=== PATIENT | male | born 1970 | race Caucasian/White ===

== ENCOUNTER 2019-11-14 10:42 | Emergency (ER) | payer BC ==
[2019-11-14] MEDS: Ketorolac 60 MG/2 ML SDV IM ONE (11:06)
[2019-11-14] MEDS: Ketorolac 60 MG/2 ML SDV ONE (11:08)
--- NOTE | 2019-11-14 11:15 | EDM.PDOC ---
ED HPI GENERAL MEDICAL PROBLEM - General Chief Complaint: General Stated Complaint: BACK PAIN Time Seen by Provider: 11/14/19 11:15 - History of Present Illness INITIAL COMMENTS - FREE TEXT/NARRATIVE: Luis presents to the ER today due to back pain. He finished his shift at [employer] and got home and messed around a little bit going to bed at 2:30 in the morning. At 6:30 in the morning, he awoke with a weird discomfort initially in his upper back. He described this as very significant in terms of quality. He notes that it started up between his shoulder blades and kind of traveled downwards and seemed to be more on the right side. In response to his symptoms , he took a hot shower, and jumped back in bed. He had difficulty finding a comfortable position. He took another hot shower as he thought he was having more muscle spasms in his back. He went on to develop some weird nausea and epigastric pain. He denies any fever or recent dyspepsia. He has had no bowel movement changes. He is not 1 to get nauseous. He did feel a little diaphoretic with his forehead at times this morning, but this is not totally atypical for him. He has had no breathing issues, although when he takes a deep inhalation, with his fingers hooked under his ribs, he thinks that might elicit the pain slightly. He has had no recent GERD. He denies any melena or hematochezia. Lower Back Pain Score (Numeric/FACES): 9 - Related Data Allergies Allergy/AdvReac Type Severity Reaction Status Date / Time No Known Allergies Allergy Verified 11/14/19 13:21 ED ROS GENERAL - Review of Systems Review Of Systems: Comprehensive ROS is negative, except as noted in HPI. ED EXAM, GENERAL - Physical Exam Exam: See Below () Exam Limited By: No Limitations General Appearance: Alert, WD/WN, No Apparent Distress Ears: Normal External Exam, Hearing Grossly Normal Nose: Normal Inspection, Normal Mucosa Throat/Mouth: Normal Inspection, Normal Lips Head: Atraumatic, Normocephalic Neck: Normal Inspection, Supple Respiratory/Chest: No Respiratory Distress, Lungs Clear, Normal Breath Sounds Cardiovascular: Regular Rate, Rhythm, No Murmur GI/Abdominal: Normal Bowel Sounds, Soft, Non-Tender Back Exam: Normal Inspection, Full Range of Motion, Muscle Spasm. No: Vertebral Tenderness Extremities: Normal Inspection, Normal Range of Motion, Non-Tender Neurological: Alert, Oriented, CN II-XII Intact, Normal Cognition, Normal Gait, Normal Reflexes, No Motor/Sensory Deficits, Other (Strength is 5 out of 5 throughout including extensor hallucis longus and coordination is excellent) Psychiatric: Normal Affect, Normal Mood Skin Exam: Warm, Dry, Intact Course - Vital Signs Text/Narrative:: Explained to Mariah that it actually seems like he may be having some referred pain from his gallbladder. He is familiar with this. He states that he definitely had some muscle spasm. He was provided with a dose of ketorolac, which led to excellent relief. He certainly is interested in continuing this at home, because he worries once his comes and picks him up that his symptoms may return. He has had no fevers, and may have had some slight nausea. He can reproduce his pain with hooking his fingers underneath his rib cage bilaterally. On bedside ultrasound, his gallbladder appears fine to me without any obvious shadowing consistent with stones, although he may have some sludge present. There does not appear to be any wall thickness or a positive Saucedo sign by any means. Discussed treatment options, and even the potential for a HIDA scan depending on how his symptoms goodrich out. Encouraged him to avoid fatty and/or greasy foods over the next few days while he recovers. He will let us know if he is interested in surgery consultation which could be set up at the clinic. Last Recorded V/S: Last Vital Signs Temp 96.1 F L 11/14/19 10:59 Pulse 50 L 11/14/19 10:59 Resp 16 11/14/19 10:59 BP 154/91 H 11/14/19 10:59 Pulse Ox 100 11/14/19 10:59 - Orders/Labs/Meds Orders: Active Orders 24 hr Category Date Time Status EKG Documentation Completion [RC] ASDIRECTED Care 11/14/19 11:12 Active Labs: Laboratory Tests 11/14/19 11/14/19 11/14/19 Range/Units 11:15 11:15 11:15 WBC Cancelled Corrected WBC Cancelled RBC Cancelled Hgb Cancelled Hct Cancelled MCV Cancelled MCH Cancelled MCHC Cancelled RDW Cancelled Plt Count Cancelled MPV Cancelled Neut % (Auto) Cancelled Lymph % (Auto) Cancelled Vance % (Auto) Cancelled Eos % (Auto) Cancelled Baso % (Auto) Cancelled Neut # (Auto) Cancelled Lymph # (Auto) Cancelled Vance # (Auto) Cancelled Eos # (Auto) Cancelled Baso # (Auto) Cancelled Add Manual Diff Cancelled D-Dimer, Quantitative Sodium Cancelled Potassium Cancelled Chloride Cancelled Carbon Dioxide Cancelled Anion Gap Cancelled BUN Cancelled Creatinine Cancelled Est Cr Clr Drug Dosing Cancelled Estimated GFR (MDRD) Cancelled BUN/Creatinine Ratio Cancelled Glucose Cancelled Calcium Cancelled Total Bilirubin Cancelled AST Cancelled ALT Cancelled Alkaline Phosphatase Cancelled Troponin I Cancelled C-Reactive Protein Total Protein Cancelled Albumin Cancelled Globulin Cancelled Albumin/Globulin Ratio Cancelled Amylase Cancelled Lipase Urine Color Urine Appearance (CLEAR) Urine pH (5.0-8.0) Ur Specific Sumas (1.003-1.030) Urine Protein (NEGATIVE) mg/dL Urine Glucose (UA) (NEGATIVE) mg/dL Urine Ketones (NEGATIVE) mg/dL Urine Occult Blood (NEGATIVE) Urine Nitrite (NEGATIVE) Urine Bilirubin (NEGATIVE) Urine Urobilinogen (0.2-1.0) E.U./dL Ur Leukocyte Esterase (NEGATIVE) 11/14/19 11/14/19 11/14/19 Range/Units 11:15 11:15 12:20 WBC Corrected WBC RBC Hgb Hct MCV MCH MCHC RDW Plt Count MPV Neut % (Auto) Lymph % (Auto) Vance % (Auto) Eos % (Auto) Baso % (Auto) Neut # (Auto) Lymph # (Auto) Vance # (Auto) Eos # (Auto) Baso # (Auto) Add Manual Diff D-Dimer, Quantitative Cancelled Sodium Potassium Chloride Carbon Dioxide Anion Gap BUN Creatinine Est Cr Clr Drug Dosing Estimated GFR (MDRD) BUN/Creatinine Ratio Glucose Calcium Total Bilirubin AST ALT Alkaline Phosphatase Troponin I C-Reactive Protein Cancelled Total Protein Albumin Globulin Albumin/Globulin Ratio Amylase Lipase Cancelled Urine Color Yellow Urine Appearance Slightly cloudy (CLEAR) Urine pH 8.5 H (5.0-8.0) Ur Specific Sum[place] 1.025 (1.003-1.030) Urine Protein Negative (NEGATIVE) mg/dL Urine Glucose (UA) Negative (NEGATIVE) mg/dL Urine Ketones Negative (NEGATIVE) mg/dL Urine Occult Blood Negative (NEGATIVE) Urine Nitrite Negative (NEGATIVE) Urine Bilirubin Negative (NEGATIVE) Urine Urobilinogen 0.2 (0.2-1.0) E.U./dL Ur Leukocyte Esterase Negative (NEGATIVE) 11/14/19 11/14/19 11/14/19 Range/Units 12:45 12:45 12:45 WBC 8.2 Corrected WBC RBC 4.78 Hgb 14.6 Hct 40.9 MCV 86 MCH 30.5 MCHC 35.7 H RDW 13.1 Plt Count 253 MPV 8.6 Neut % (Auto) 79.7 H Lymph % (Auto) 14.2 L Vance % (Auto) 4.9 Eos % (Auto) 1.0 Baso % (Auto) 0.2 Neut # (Auto) 6.53 Lymph # (Auto) 1.16 L Vance # (Auto) 0.40 Eos # (Auto) 0.08 Baso # (Auto) 0.02 Add Manual Diff D-Dimer, Quantitative < 100 Sodium 140 Potassium 3.7 Chloride 102 Carbon Dioxide 28.8 Anion Gap 12.9 BUN 15 Creatinine 1.02 Est Cr Clr Drug Dosing 3.23 Estimated GFR (MDRD) > 60 BUN/Creatinine Ratio 14.7 Glucose 119 H Calcium 9.1 Total Bilirubin 0.5 AST 29 ALT 48 Alkaline Phosphatase 104 Troponin I < 0.017 C-Reactive Protein 6.1 H Total Protein 7.9 Albumin 4.2 Globulin 3.7 Albumin/Globulin Ratio 1.1 Amylase 46 Lipase 146 Urine Color Urine Appearance (CLEAR) Urine pH (5.0-8.0) Ur Specific Sumas (1.003-1.030) Urine Protein (NEGATIVE) mg/dL Urine Glucose (UA) (NEGATIVE) mg/dL Urine Ketones (NEGATIVE) mg/dL Urine Occult Blood (NEGATIVE) Urine Nitrite (NEGATIVE) Urine Bilirubin (NEGATIVE) Urine Urobilinogen (0.2-1.0) E.U./dL Ur Leukocyte Esterase (NEGATIVE) Meds: Medications Discontinued Medications Generic Name Dose Route Start Last Admin Trade Name Freq PRN Reason Stop Dose Admin Cyclobenzaprine HCl 10 mg 11/14/19 12:38 11/14/19 12:39 Flexeril PO 10 mg DAILY PRN Administration Muscle spasms Cyclobenzaprine HCl Confirm 11/14/19 12:35 11/14/19 13:23 Flexeril Administered 11/14/19 12:36 Not Given Dose 10 mg .ROUTE .STK-MED ONE Ketorolac Tromethamine Confirm 11/14/19 11:01 11/14/19 11:08 Toradol Administered 11/14/19 11:02 Not Given Dose 60 mg .ROUTE .STK-MED ONE Ketorolac Tromethamine 60 mg 11/14/19 10:58 11/14/19 11:06 Toradol IM 11/14/19 10:59 60 mg ONETIME ONE Administration Departure - Departure Time of Disposition: 13:36 Disposition: Home, Self-Care 01 Clinical Impression: Biliary colic - Discharge Information Instructions: Cyclobenzaprine tablets, Ketorolac tablets Referrals: PCP,None [Primary Care Provider] - Forms: ED Department Discharge Additional Instructions: Discharge home. Ultrasound tomorrow, 11/15/19 at 9:30. Do not eat or drink anything 6 hours before procedure. Flexeril 10mg 1 tablet by mouth 3 times a day as needed for muscle spasms. Toradol 10mg 1 tablet by mouth 3 times a day for 4 days. Follow up in the clinic as needed. Sepsis Event Note - Evaluation Sepsis Screening Result: No Definite Risk - Focused Exam Vital Signs: Vital Signs Temp Pulse Resp BP Pulse Ox 11/14/19 10:59 96.1 F L 50 L 16 154/91 H 100 11/14/19 10:47 96.1 F L 50 L 16 154/91 H 100 Date Exam was Performed: 11/14/19 Time Exam was Performed: 15:04 - My Orders Last 24 Hours: My Active Orders 11/14/19 11:12 EKG Documentation Completion [RC] ASDIRECTED - Assessment/Plan Last 24 Hours: My Active Orders 11/14/19 11:12 EKG Documentation Completion [RC] ASDIRECTED
--- NOTE | 2019-11-14 12:11 | CR ---
DATE OF SERVICE: 11/14/19 CLINICAL DATA: epigastric pain PA AND LATERAL CHEST: The heart size is normal. The lungs are clear. No pneumothorax. No pleural effusions. There is degenerative disc disease throughout the thoracic spine. No evidence of acute intrathoracic disease. [id number] MTDD
[2019-11-14] MEDS: Cyclobenzaprine 10 MG Tab PO PRN (12:39)
[2019-11-14] MEDS: Cyclobenzaprine 10 MG Tab ONE (13:23)
== END 2019-11-14 13:40 | disposition home or self-care (01) ==
LOC: LB.ED 10:42
DX: K80.50 Calculus of bile duct without cholangitis or cholecystitis without obstruction (principal)
CPT/HCPCS: 36415; 71046; 80053; 81003; 82150; 83690; 84484; 85025; 85379; 86140; 93005; 96372; 99283; 99284-25; A9270-GY; J1885

== ENCOUNTER 2020-08-27 00:41 | Observation (INO) | payer BC ==
[2020-08-27] MEDS ORDERED: Ketorolac 30 MG/ML SDV ONE (01:12)
[2020-08-27] MEDS ORDERED: HYDROmorphone 2 MG/ML SDV IVPUSH ONE (01:13)
[2020-08-27] MEDS ORDERED: Ketorolac 30 MG/ML SDV IVPUSH ONE (01:13)
[2020-08-27] MEDS ORDERED: HYDROmorphone 2 MG/ML SDV ONE (01:28)
[2020-08-27] MEDS ORDERED: Ondansetron 4 MG/2 ML SDV ONE (01:45)
[2020-08-27] MEDS ORDERED: Ondansetron 4 MG/2 ML SDV IVPUSH ONE (02:42)
[2020-08-27] MEDS ORDERED: FLU VACC QS2020-21(6MOS UP)/PF 60 MCG/0.5 ML SYRINGE IM ONE (03:00)
[2020-08-27] MEDS ORDERED: Promethazine 6.25 MG in Sodium Chloride 0.9% 50 ML IV PRN (03:15)
[2020-08-27] MEDS ORDERED: Promethazine 25 MG/ML SDV ONE (03:20)
[2020-08-27] MEDS ORDERED: Morphine 2 MG/ML SYRINGE IVPUSH PRN (03:34)
[2020-08-27] MEDS ORDERED: Pantoprazole 40 MG Vial IV ONE (03:34)
[2020-08-27] MEDS ORDERED: Ondansetron 4 MG/2 ML SDV IVPUSH PRN (03:37)
--- NOTE | 2020-08-27 03:43 | PCM.CONS ---
H&P History of Present Illness - General Date of Service: 08/27/20 Admit Problem/Dx: Admission Diagnosis/Problem Admission Diagnosis/Problem Pancreatitis Source of Information: Patient - History of Present Illness Initial Comments - Free Text/Narative: Gabriela Unger Hospitalist ADMISSION SUPPORT NOTE eHospitalist was contacted by Joshua White with request of admission support. Chief complaint: Abdominal pain with nausea and vomiting HPI: The patient presents with abdominal pain that started a few days ago. Initially the pain felt more bloating in nature. Yesterday evening he states that the pain worsened and it was "really painful in my back" however that pain improved. Tonight the pain was severe in intensity in the right upper quadrant and epigastric region. The pain in the right upper quadrant he describes as "stabbing" and the pain in the epigastric region feels like "a post that goes through to the back". He reports that the pain is tender to palpation in the right upper quadrant. He has associated nausea vomiting. Review of systems other mention above is negative - Related Data Allergies/Adverse Reactions: Allergies Allergy/AdvReac Type Severity Reaction Status Date / Time No Known Allergies Allergy Verified 08/27/20 02:49 Past Medical History Gastrointestinal History: Reports: Cholelithiasis Musculoskeletal History: Reports: Other (See Below) Other Musculoskeletal History: L4-L5 injury in his 20's Neurological History: Reports: Migraines - Infectious Disease History Infectious Disease History: Reports: Chicken Pox, Influenza - Past Surgical History GI Surgical History: Reports: None - History Comment History Comment: Home Medications: Reviewed see EMR for details. Pertinent Medical History: HTN, TIFFANY on CPAP, seasonal allergies, GERD. 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 Social & Family History - Tobacco Use Tobacco Use Status *Q: Never Tobacco User Second Hand Smoke Exposure: No - Recreational Drug Use Recreational Drug Use: No H&P Review of Systems - Review of Systems: Review Of Systems: Comprehensive ROS is negative, except as noted in HPI. Exam - Exam Exam: See Below - Vital Signs Vital Signs: Last Vital Signs Temp 35.3 C L 08/27/20 00:43 Pulse 72 08/27/20 01:35 Resp 20 08/27/20 01:35 BP 129/90 08/27/20 01:35 Pulse Ox 98 08/27/20 00:43 Weight: 133.356 kg - Exam Physical Exam Comments:: Exam (performed via interactive video with assistance of bedside nurse): General: Alert, cooperative, no acute distress, obese HEENT: Oral mucosa pink and moist without erythema Lungs: Clear to auscultation bilaterally without crackle or wheeze CV: Regular rate and rhythm without loud murmur rub or gallop Abd: Bowel sounds present, does not exhibit signs of pain and right upper quadrant particularly and also epigastric region with palpation done by bedside nurse Ext: No pitting edema noted Skin: No rashes, bruises or lesions appreciated on gross visualization of exposed skin Neuro: Alert, oriented x 3. CN III -VII, XI, XII grossly intact, moves all ex tremities without any significant focal deficit appreciated by nurse - Patient Data Lab Results Last 24 hrs: Laboratory Results - last 24 hr 08/27/20 08/27/20 Range/Units 01:15 01:15 WBC 6.6 (4.0-11.0) K/uL RBC 4.48 L (4.50-6.50) M/uL Hgb 13.5 (13.0-18.0) g/dL Hct 38.5 L (40.0-54.0) % MCV 86 (76-96) fL MCH 30.1 (27.0-32.0) pg MCHC 35.1 H (31.0-35.0) g/dL RDW 13.1 (11.0-16.0) % Plt Count 276 (150-400) K/uL MPV 8.8 (6.0-10.0) fL Neut % (Auto) 77.4 H (45.0-70.0) % Lymph % (Auto) 15.8 L (20.0-40.0) % Owsley % (Auto) 5.7 (3.0-10.0) % Eos % (Auto) 0.8 L (1.0-5.0) % Baso % (Auto) 0.3 (0.0-0.5) % Neut # (Auto) 5.14 (2.00-7.50) K/uL Lymph # (Auto) 1.05 L (1.50-4.00) K/uL Owsley # (Auto) 0.38 (0.20-0.80) K/uL Eos # (Auto) 0.05 (0.04-0.40) K/uL Baso # (Auto) 0.02 (0.02-0.10) K/uL Sodium 142 (136-145) mmol/L Potassium 3.7 (3.5-5.1) mmol/L Chloride 104 (98-107) mmol/L Carbon Dioxide 30.0 (21.0-32.0) mmol/L Anion Gap 11.7 (5.0-15.0) mmol/L BUN 13 (8-26) mg/dL Creatinine 1.17 (0.70-1.30) mg/dL Est Cr Clr Drug Dosing TNP Estimated GFR (MDRD) > 60 (>60) MLS/MIN BUN/Creatinine Ratio 11.1 (6-25) Glucose 125 H (74-100) mg/dL Calcium 9.0 (8.5-10.1) mg/dL Total Bilirubin 1.6 H D (0.0-1.0) mg/dL AST 430 H (15-37) U/L ALT 672 H (12-78) U/L Alkaline Phosphatase 144 H (46-116) U/L Total Protein 7.6 (6.4-8.2) g/dL Albumin 3.8 (3.4-5.0) g/dL Globulin 3.8 (2.2-4.2) g/dL Albumin/Globulin Ratio 1.0 (0.8-2.0) Lipase 166 (73-393) U/L Result Diagrams: 08/27/20 01:15 08/27/20 01:15 Sepsis Event Note - Evaluation Sepsis Screening Result: No Definite Risk - Focused Exam Vital Signs: Vital Signs Temp Pulse Resp BP Pulse Ox 08/27/20 01:35 72 20 129/90 08/27/20 00:43 35.3 C L 81 18 142/90 H 98 Consult PN Assessment/Plan Procedures: Procedures ANTINUCLEAR ANTIBODIES (08/06/16) ASSAY OF AMYLASE (11/14/19) ASSAY OF BLOOD/URIC ACID (08/06/16) ASSAY OF LIPASE (11/14/19) ASSAY OF TROPONIN QUANT (11/14/19) BODY FLUID CELL COUNT (10/27/16) BODY FLUID SPECIFIC GRAVITY (10/27/16) C-REACTIVE PROTEIN (11/14/19) C-REACTIVE PROTEIN HS (08/06/16) COMPLETE CBC W/AUTO DIFF WBC (11/14/19) COMPREHEN METABOLIC PANEL (11/14/19) CT ABDOMEN W/O DYE (07/06/17) CULTURE OTHR SPECIMN AEROBIC (10/27/16) ECHO EXAM OF ABDOMEN (11/16/19) ELECTROCARDIOGRAM TRACING (11/14/19) EMERGENCY DEPT VISIT (11/14/19) EMERGENCY DEPT VISIT (11/14/19) EXAM SYNOVIAL FLUID CRYSTALS (10/27/16) FIBRIN DEGRADATION QUANT (11/14/19) RBC SED RATE NONAUTOMATED (08/06/16) RHEUMATOID FACTOR QUANT (08/06/16) ROUTINE VENIPUNCTURE (11/14/19) SMEAR GRAM STAIN (10/27/16) THER/PROPH/DIAG INJ SC/IM (11/14/19) URINALYSIS AUTO W/O SCOPE (11/14/19) X-RAY EXAM CHEST 2 VIEWS (11/14/19) X-RAY EXAM OF KNEE 1 OR 2 (08/06/16) X-RAY EXAM OF KNEES (08/06/16) Problem List Initiated/Reviewed/Updated: Yes My Orders Last 24 Hours: My Active Orders 08/27/20 03:15 Promethazine [Phenergan] 6.25 mg Sodium Chloride 0.9% [Normal Saline] 50 ml IV Q6H 08/27/20 03:34 Height and Weight [RC] DAILY Intake and Output [RC] QSHIFT Oxygen Therapy [RC] PRN Up ad Chelly [RC] ASDIRECTED VTE/DVT Education [RC] Per Unit Routine Vital Signs [RC] Q4H Morphine 2 mg IVPUSH Q2H PRN 08/27/20 03:37 Ondansetron [Zofran] 4 mg IVPUSH Q4H PRN 08/27/20 03:45 Sodium Chloride 0.9% @ 125 MLS/HR (1000ml) Sodium Chloride 0.9% [Normal Saline] 1,000 ml IV ASDIRECTED 08/27/20 Breakfast Nothing per Oral Now Diet [DIET] Abdomen Comp [US] Routine 08/27/20 08:00 Enoxaparin [Lovenox] 40 mg SUBCUT DAILY Plan: Recent lab/Imaging: Reviewed see EMR for details Assessment and Plan: 1. Acute pancreatitis-related to gallstone disease. Keep n.p.o. IV fluids. Pain management with morphine. Antiemetics 2. Gallstone disease-the cause of pancreatitis. Will get ultrasound to evaluate further. Given his previous history of sludge in the gallbladder with back pain last year and now his presentation with acute pancreatitis he should have his gallbladder removed at some point as an outpatient. 3. Transaminitis-secondary to gallstone disease and pancreatitis. Monitor 4. HTN-stable hold antihypertensive agents for now. 5. GERD-stable continue Protonix 6. TIFFANY-stable on CPAP 7. DVT prophylaxis-Lovenox 8. CODE STATUS full code discussed with patient Chart review was performed as well as evaluation of the patient via video. Thank you for involving ehospitalist. Please contact [phone] if further assistance is needed.
[2020-08-27] MEDS ORDERED: Sodium Chloride 0.9% 1,000 ML IV SCH (03:45)
--- NOTE | 2020-08-27 04:22 | ADMIT ---
This 49-year-old male was admitted through the emergency room with acute abdominal pain. CT shows acute mild pancreatitis and the patient has significant elevated liver enzymes with his AST at 430, ALT 672, alkaline phosphatase 144. He was given Toradol and Dilaudid in the emergency room, which seems to help with his pain fairly well, but he became nauseated and started vomiting after going to the CT machine. Zofran was given twice and it was decided the patient would need admission to help monitor and control his symptoms. I did contact the e-hospitalist, Dr. Peters, who will help with admission orders and monitoring the patient overnight. The patient's abdominal exam in the ER revealed diffuse tenderness with guarding with even light palpation throughout the epigastric area. The lower quadrants were just a dull ache without guarding. Bowel sounds are present, but quiet and the patient has been afebrile. Blood pressure started out at 142/90 with the second reading of 129/90, pulse 84. The patient denies any use of alcohol and states he rarely uses Tylenol. Current medications as stated by the patient are lisinopril and omeprazole. CRS/MODL /[id number]
--- NOTE | 2020-08-27 05:14 | ER ---
HISTORY OF PRESENT ILLNESS: A 49-year-old male here with complaints of abdominal pain. It has been on and off for the last couple of days, but it got more severe tonight. 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 The patient has been a little nauseated, but has not been vomiting. He has not taken anything for pain control so far today. No over-the- counter medications. He stated he last ate at about 6:30 p.m. He tells me this feels somewhat similar to abdominal pain he had last spring, which they thought was his gallbladder, but he had not had any problems since then. The patient has not been coughing. No problems with shortness of breath or high fever. He states that his bowel movements have been a little off lately, but not really constipated. He currently rates his pain at 7 to 9 out of 10. OBJECTIVE: GENERAL APPEARANCE: The patient is awake and alert. When I walked into the ER, he was on his phone doing something. VITAL SIGNS: Initially reveal he is afebrile. Blood pressure 142/90, pulse in the 80s. LUNGS: Clear. CARDIAC: Heart sounds distinct without murmurs. ABDOMEN: Tender diffusely. There is guarding with even light touch throughout the epigastric area and more of a dull ache involving the lower quadrants without guarding. Bowel sounds are present, but hypoactive. SKIN: Warm and dry. INITIAL TREATMENT PLAN: An IV was started. The patient was given Toradol 30 mg IV, and within a few minutes, we gave him Dilaudid 1 mg. This did bring his pain down to a more comfortable level. LABORATORY DATA: CBC is unremarkable. WBC is 6.6, neutrophils are 77.4. Comprehensive metabolic panel reveals liver enzymes are elevated. AST at 430, ALT 672, alk phos is 144. CT of the abdomen and pelvis without contrast reveals mild acute pancreatitis. The gallbladder is mildly distended with a tiny gallstone. No biliary ductal dilation. DIAGNOSES: Acute abdominal pain with mild pancreatitis and elevated liver enzymes. TREATMENT PLAN: The patient will be admitted for observation. After going to the CT machine, he became more nauseated and vomited 3 times. Therefore, we will put him in as an inpatient for observation so we can control his nausea, vomiting, and pain. I did contact the e-hospitalist program, talking with Dr. Peters, who agreed to assist with the admission for this patient. CRS/MODL /[id number]
--- NOTE | 2020-08-27 07:32 | CT ---
Date of Service: 08/27/20 Clinical Data: Abd pain. UNENHANCED ABDOMEN AND PELVIC CT: Multislice acquisition through the abdomen and pelvis without IV or oral contrast was performed. Comparison was made to a prior exam dated 07/06/17. The lung bases are clear. The heart size is normal. There is a small hiatal hernia. The liver is normal size with homogeneous attenuation. No focal hepatic lesions. There is a single calcified gallstone noted within the dependent gallbladder. No pericholecystic fluid. The spleen appears normal. The pancreas is mildly swollen diffusely with subtle peripancreatic fat stranding consistent with pancreatitis. No evidence of a pancreatic mass. The right and left adrenals appear normal. No nephrocalcinosis or nephrolithiasis. No hydronephrosis or hydroureter. The bladder is partially fluid filled. It appears normal. The appendix is not dilated. No evidence of appendicitis. No free air. No free fluid. No dilated loops of bowel. No adenopathy. No aortic aneurysm. There is a fat-containing umbilical hernia. There is a left fat-containing inguinal hernia. There is degenerative disk disease at multiple levels in the lower thoracic and lumbar spine. IMPRESSION: 1. Cholelithiasis. 2. Abnormal pancreas suspicious for mild or early pancreatitis. 3. Other findings as discussed above. [id number] [facility] [place]
[2020-08-27] MEDS ORDERED: Pantoprazole 40 MG Tab.CR ONE (07:41)
[2020-08-27] MEDS ORDERED: Enoxaparin 40 MG/0.4 ML Syringe SUBCUT SCH (08:00)
[2020-08-28] MEDS ORDERED: Pantoprazole 40 MG Tab.CR PO SCH (07:00)
--- NOTE | 2020-08-28 07:13 | DISCH ---
HISTORY OF PRESENT ILLNESS: This is a 49-year-old male who was admitted through the emergency room last night with acute abdominal pain. His liver enzymes were elevated and he had mild pancreatitis that showed up on a CT scan. He was treated with pain control using Toradol followed by Dilaudid and Zofran. The patient developed nausea and vomiting symptoms while here. He vomited at least 3 times in the emergency room before being admitted to the floor. The patient was given IV fluids and his condition rapidly improved. He has not had any more episodes of vomiting. He has been up and walking around the room to the bathroom without any difficulty. He denies any nausea this morning and states that he feels much better. He has minimal tenderness in the abdomen at this time. PHYSICAL EXAMINATION: VITAL SIGNS: This morning revealed he is afebrile, pulse 79, blood pressure 119/73, respirations 16, O2 sats 99% on room air. ABDOMEN: The patient has just minimal discomfort with light palpation in the epigastric area today. Bowel sounds are present, still hypoactive. There is no discomfort with palpation of the lower abdomen. SKIN: Warm and dry. LUNGS: Clear. CARDIAC: Heart sounds distinct without murmurs. ASSESSMENT AND PLAN: The patient will be discharged today. He did eat a soft diet breakfast and tolerated this well. I did have a discussion about pain control with the pharmacist due to his liver enzymes being elevated, and we will put him on Dilaudid to use p.r.n., Zofran sublingual also p.r.n., and he is to utilize a soft diet in small amounts, stay away from any greasy or spicy food, and do not take any Tylenol or alcohol products. The patient informed me last night that he does not use alcohol at all. An ultrasound is scheduled tomorrow morning of the abdomen, and I did consult with Dr. Ibanez who will assume care for the patient at that time. Appointment time has been also scheduled to see Dr. Ibanez next Tuesday in the clinic. The patient may need a surgical consult soon. This will be determined over the next few days. The patient is discharged in stable condition. CRS/MODL /[id number]
== END 2020-08-27 11:15 | disposition home or self-care (01) ==
LOC: LB.ED 00:41 → LB.MS 02:15 → UNDOADMOB 02:15 → LB.MS 02:54
PROVIDERS: ADMIT Internal Medicine; ATTEND Physician Assistant
DX: K85.90 Acute pancreatitis without necrosis or infection, unspecified (principal); R94.5 Abnormal results of liver function studies; G43.909 Migraine, unspecified, not intractable, without status migrainosus; K80.20 Calculus of gallbladder without cholecystitis without obstruction; R74.01 Elevation of levels of liver transaminase levels; I10 Essential (primary) hypertension; K21.9 Gastro-esophageal reflux disease without esophagitis; G47.33 Obstructive sleep apnea (adult) (pediatric); Z20.822 Contact with and (suspected) exposure to COVID-19; Z79.899 Other long term (current) drug therapy
CPT/HCPCS: 36415; 74176; 80053; 81001; 83690; 85025; 87070; 96372; C9113; J1170; J1650; J1885; J2405; J2550; J7030; U0002

== ENCOUNTER 2021-01-26 12:05 | Emergency (ER) | payer BC ==
[2021-01-26] MEDS ORDERED: Sodium Chloride 0.9% 1,000 ML IV ONE (14:29)
[2021-01-26] MEDS ORDERED: Sodium Chloride 0.9% 1,000 ML IV SCH ×2 (14:30)
--- NOTE | 2021-01-26 15:29 | EDM.PDOC ---
ED HPI GENERAL MEDICAL PROBLEM - General Chief Complaint: General Stated Complaint: GI BLEED Time Seen by Provider: 01/26/21 12:20 Source of Information: Reports: Patient - History of Present Illness Onset: Sudden Onset Date: 01/25/21 (Multiple episodes of rectal bleeding with clots.) Onset Time: 20:00 Duration: Waxing/Waning (multiple episodes over nite and this morning.) Associated Symptoms: Reports: Other (Dizziness and nausea with activity.) - Related Data Allergies Allergy/AdvReac Type Severity Reaction Status Date / Time No Known Allergies Allergy Verified 08/27/20 02:49 Home Meds: Home Meds Cetirizine HCl [Zyrtec] 10 mg PO DAILY 08/27/20 [History] Multivitamin 1 each PO DAILY 08/27/20 [History] Hawkins-3 Fatty Acids/Fish Oil [Fish Oil 1,000 mg Capsule] 1 each PO DAILY 08/27/20 [History] Omeprazole 20 mg PO ACBREAKFAST 08/27/20 [History] Phentermine HCl 37.5 mg PO DAILY 08/27/20 [History] lisinopriL [Lisinopril] 5 mg PO DAILY 08/27/20 [History] Past Medical History Gastrointestinal History: Reports: Cholelithiasis Other Gastrointestinal History: rectal bleeding Musculoskeletal History: Reports: Other (See Below) Other Musculoskeletal History: L4-L5 injury in his 20's Neurological History: Reports: Migraines - Infectious Disease History Infectious Disease History: Reports: Chicken Pox, Influenza - Past Surgical History GI Surgical History: Reports: None - History Comment History Comment: Home Medications: Reviewed see EMR for details. Pertinent Medical History: HTN, TIFFANY on CPAP, seasonal allergies, GERD. 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 Dropped to 11.8 this afternoon. Last Recorded V/S: Last Vital Signs Temp 96.9 F 01/26/21 12:18 Pulse 100 01/26/21 12:18 Resp 16 01/26/21 12:18 BP 106/67 01/26/21 15:12 Pulse Ox 99 01/26/21 12:18 - Orders/Labs/Meds Labs: Laboratory Tests 01/26/21 01/26/21 Range/Units 13:19 14:57 WBC 7.3 (4.0-11.0) K/uL RBC 3.87 L (4.50-6.50) M/uL Hgb 11.8 L (13.0-18.0) g/dL Hct 33.9 L (40.0-54.0) % MCV 88 (76-96) fL MCH 30.5 (27.0-32.0) pg MCHC 34.8 (31.0-35.0) g/dL RDW 12.9 (11.0-16.0) % Plt Count 233 (150-400) K/uL MPV 8.6 (6.0-10.0) fL Neut % (Auto) 77.9 H (45.0-70.0) % Lymph % (Auto) 16.4 L (20.0-40.0) % Sheridan % (Auto) 4.9 (3.0-10.0) % Eos % (Auto) 0.7 L (1.0-5.0) % Baso % (Auto) 0.1 (0.0-0.5) % Neut # (Auto) 5.68 (2.00-7.50) K/uL Lymph # (Auto) 1.20 L (1.50-4.00) K/uL Sheridan # (Auto) 0.36 (0.20-0.80) K/uL Eos # (Auto) 0.05 (0.04-0.40) K/uL Baso # (Auto) 0.01 L (0.02-0.10) K/uL SARS-CoV-2 RNA (ZULAY) Negative (NEGATIVE) Meds: Medications Discontinued Medications Generic Name Dose Route Start Last Admin Trade Name Freq PRN Reason Stop Dose Admin Sodium Chloride 1,000 mls @ 0 mls/hr 01/26/21 14:30 Normal Saline IV ASDIRECTED JEAN CLAUDE KVO Sodium Chloride 1,000 mls @ 150 mls/hr 01/26/21 14:30 01/26/21 14:00 Normal Saline IV 150 mls/hr ASDIRECTED JEAN CLAUDE Administration Sodium Chloride 1,000 mls @ 999 mls/hr 01/26/21 14:29 01/26/21 12:30 Normal Saline IV 01/26/21 15:29 999 mls/hr .BOLUS ONE Administration Departure - Departure Time of Disposition: 16:30 Disposition: DC/Tfer to Acute Hospital 02 Condition: Good Clinical Impression: Rectal bleed - Discharge Information Referrals: PCP,None [Primary Care Provider] - Forms: ED Department Discharge, Interfacility Transfer EMTALA Additional Instructions: Pt will be transferred to [place] in [place]. Sepsis Event Note (ED) - Evaluation Sepsis Screening Result: No Definite Risk
== END 2021-01-26 16:30 ==
LOC: LB.ED 12:05
DX: K62.5 Hemorrhage of anus and rectum (principal); Z79.899 Other long term (current) drug therapy; Z20.822 Contact with and (suspected) exposure to COVID-19
CPT/HCPCS: 36415; 85025; 99284; 99285; J7030; U0002

== ENCOUNTER 2021-05-20 23:50 | Emergency (ER) | payer BC ==
--- NOTE | 2021-05-21 00:43 | EDM.PDOC ---
ED HPI GENERAL MEDICAL PROBLEM - General Chief Complaint: Allergic Reaction Stated Complaint: ALLERGY Time Seen by Provider: 05/21/21 00:07 - History of Present Illness INITIAL COMMENTS - FREE TEXT/NARRATIVE: This patient presents to the emergency department for evaluation of lip swelling. He states he noticed his lower lip becoming quite swollen at approximately 530 last evening or about 8 hours prior to arrival in the ER. He states he had a small blister on his lip yesterday which he thinks he may have bitten off and then noticed the swelling. He has no upper lip swelling, no unusual feelings in his throat or mouth. He has no facial swelling, or eye swelling. He has no difficulty breathing. He is currently receiving a continuous infusion of FOLFOX for colorectal cancer. He states that this is his sixth infusion of the medication in his usual dosing is 1 week on and 1 week off. He has tolerated the medication well in the past. He also denies any difficulty breathing, skin rashes, other concerns or complaints. - Related Data Allergies Allergy/AdvReac Type Severity Reaction Status Date / Time No Known Allergies Allergy Verified 05/21/21 00:19 Home Meds: Home Meds Multivitamin 1 each PO DAILY 08/27/20 [History] Omeprazole 20 mg PO ACBREAKFAST 08/27/20 [History] lisinopriL [Lisinopril] 5 mg PO DAILY 08/27/20 [History] Cetirizine [ZyrTEC] 10 mg PO DAILY 05/21/21 [History] Cyanocobalamin (Vitamin B-12) [B-12] 1,000 mcg PO DAILY 05/21/21 [History] Past Medical History Gastrointestinal History: Reports: Cholelithiasis Other Gastrointestinal History: rectal bleeding Musculoskeletal History: Reports: Other (See Below) Other Musculoskeletal History: L4-L5 injury in his 20's Neurological History: Reports: Migraines - Infectious Disease History Infectious Disease History: Reports: Chicken Pox, Influenza - Past Surgical History GI Surgical History: Reports: None - History Comment History Comment: Home Medications: Reviewed see EMR for details. Pertinent Medical History: HTN, TIFFANY on CPAP, seasonal allergies, GERD. 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 Denies: Anorexia, Diarrhea, Decreased Appetite, Nausea, Vomiting Musculoskeletal: Reports: No Symptoms Skin: Reports: No Symptoms. Denies: Cyanosis, Pallor Neurological: Reports: No Symptoms ED EXAM GENERAL NO PERIP PULSE - Physical Exam Exam: See Below Exam Limited By: No Limitations General Appearance: Alert, WD/WN, No Apparent Distress Eye Exam: Bilateral Eye: Normal Inspection, PERRL Ears: Normal External Exam Nose: Normal Inspection Throat/Mouth: Normal Inspection, Other (Lower lip extremely swollen, erythematous. Swelling contained within the vermilion border. There are no open lesions.) Head: Atraumatic, Normocephalic Neck: Normal Inspection, Full Range of Motion Respiratory/Chest: No Respiratory Distress, Lungs Clear, Normal Breath Sounds, No Accessory Muscle Use, Chest Non-Tender Cardiovascular: Regular Rate, Rhythm Back Exam: Normal Inspection Extremities: Normal Inspection Neurological: Alert, Oriented Skin Exam: Warm, Dry, Intact Course - Re-Assessments/Exams Free Text/Narrative Re-Assessment/Exam: 05/21/21 08:18 Patient presents to the emergency department for evaluation of lower lip swelling. The swelling is limited to just his lower lip and is contained within the vermilion border. There are no signs or symptoms of anaphylaxis or other systemic concerns. This could be related to his chemotherapy. His lung sounds are clear and his physical exam is normal with this exception. He was instructed to contact his oncologist in the morning to seek advice. He should return to the emergency room immediately for any difficulty breathing, shortness of breath, facial swelling Departure - Departure Time of Disposition: 12:45 Disposition: Home, Self-Care 01 Clinical Impression: Cheilitis - Discharge Information *PRESCRIPTION DRUG MONITORING PROGRAM REVIEWED*: No *COPY OF PRESCRIPTION DRUG MONITORING REPORT IN PATIENT SAMARA: No Forms: ED Department Discharge Additional Instructions: Call [facility] tomorrow and notify of symptoms. Return to ED if any difficulty with breathing or SOB
== END 2021-05-21 00:38 | disposition home or self-care (01) ==
LOC: LB.ED 23:50
DX: K13.0 Diseases of lips (principal); Z79.899 Other long term (current) drug therapy
CPT/HCPCS: 99283